=== PATIENT | male | born 2000 | race Caucasian/White ===

== ENCOUNTER 2024-03-19 11:43 | Emergency (ER) | payer OTHER, BC ==
[2024-03-19] MEDS: Lidocaine/Epineph/Tetracaine 3 ML Syringe TOP ONE (12:16)
[2024-03-19] MEDS: Diphtheria,Pertussis(Acell),Tetanus Vaccine 0.5 ML Syringe IM ONE (13:20)
== END 2024-03-19 13:26 | disposition home or self-care (01) ==
LOC: FB.ED 11:43
DX: S61.012A Laceration without foreign body of left thumb without damage to nail, initial encounter (principal); W26.0XXA Contact with knife, initial encounter
CPT/HCPCS: 12001; 90471; 90715; 99282; A9270; 99283

== ENCOUNTER 2024-04-05 18:57 | Emergency (ER) | payer BC | END 2024-04-05 21:05 | disposition home or self-care (01) | LOC: FB.ED 18:57 | DX: S66.222A Laceration of extensor muscle, fascia and tendon of left thumb at wrist and hand level, initial encounter (principal); V92.0 Drowning and submersion due to fall off watercraft; Y93.17 Activity, water skiing and wake boarding | CPT/HCPCS: 73140-FA; 99283 ==